=== PATIENT | male | born 1990 | race Two or more races ===

== ENCOUNTER 2021-01-13 11:28 | Emergency (ER) | payer OTHER ==
[~2021-01-13] VITALS: Ht 172.7 cm; Wt 68.0 kg
[2021-01-13 11:28] VITALS: BP 113/77
== END 2021-01-13 13:43 | disposition home or self-care (01) ==
LOC: ER 11:28 → EDBD 11:28 → ER 13:43
DX: R07.9 Chest pain, unspecified (principal); M25.512 Pain in left shoulder; R53.1 Weakness; V43.52XA Car driver injured in collision with other type car in traffic accident, initial encounter; Y93.89 Activity, other specified; Y92.89 Other specified places as the place of occurrence of the external cause; Y99.8 Other external cause status
CPT/HCPCS: 71045; 73030